=== PATIENT | female | born 1990 | race Hispanic/Latino ===

== ENCOUNTER 2018-04-29 04:22 | Emergency (ER) | payer MEDICAID ==
[2018-04-29 04:47] LABS: BASOPHILS % (AUTO) 0.6 % (0.0-5.0); EOSINOPHILS % (AUTO) 2.6 % (0.0-8.0); HEMATOCRIT 35.9 % (36-48); LYMPHOCYTES % (AUTO) 26.3 % (21.0-51.0); MEAN CORPUSCULAR HEMOGLOBIN 30.9 pg (27.0-33.0); MEAN CORPUSCULAR HGB CONC 34.9 g/dL (32.0-36.0); MEAN CORPUSCULAR VOLUME 88.5 fL (79-99); MONOCYTES % (AUTO) 6.6 % (3.0-13.0); NEUTROPHILS % (AUTO) 63.9 % (40.0-77.0); PLATELET COUNT (AUTO) 272 K/uL (130-400); RED BLOOD CELL COUNT(AUTO) 4.05 MIL/uL (4.00-5.50); RED CELL DISTRIBUTION WIDTH 12.7 % (11.0-15.5)
[2018-04-29 04:58] LABS: CREATININE 0.7 mg/dL (0.5-1.5); POTASSIUM 3.6 mmol/L (3.5-5.1)
[2018-04-29 05:03] LABS: ALBUMIN 2.7 g/dL (3.5-5.0); BILIRUBIN,TOTAL 0.3 mg/dL (0.2-1.0)
[2018-04-29] MEDS ORDERED: HYDROXYZINE HCL 25 MG TABLET ONE (05:06)
[2018-04-29] MEDS ORDERED: LORATADINE 10 MG TABLET ONE (06:38)
[2018-04-29] MEDS ORDERED: FAMOTIDINE/PF 20 MG/2 ML VIAL IV ONE (06:39)
== END 2018-04-29 06:59 | disposition home or self-care (01) ==
LOC: EDH 04:22
DX: O26.893 Other specified pregnancy related conditions, third trimester (principal); L29.9 Pruritus, unspecified; Z87.891 Personal history of nicotine dependence; Z3A.38 38 weeks gestation of pregnancy
CPT/HCPCS: 36415; 80053; 85025; 96374; 99284; J3490

== ENCOUNTER 2018-05-01 12:54 | Inpatient (IN) | payer MEDICAID ==
[~2018-05-01] VITALS: Ht 160 cm; Wt 82.1 kg
[2018-05-01] MEDS ORDERED: AMPICILLIN 2GM+NS 100ML 100 ML IV SCH (13:45)
[2018-05-01] MEDS: DINOPROSTONE 10 MG VAGINAL SUPP VG SCH (13:45)
[2018-05-01] MEDS ORDERED: OXYTOCIN-LR 20 UNITS/1000 ML 1,000 ML IV SCH (13:45)
[2018-05-01 13:47] LABS: HEMATOCRIT 35.8 % (36-48); MEAN CORPUSCULAR HEMOGLOBIN 30.4 pg (27.0-33.0); MEAN CORPUSCULAR HGB CONC 34.3 g/dL (32.0-36.0); MEAN CORPUSCULAR VOLUME 88.6 fL (79-99); PLATELET COUNT (AUTO) 265 K/uL (130-400); RED BLOOD CELL COUNT(AUTO) 4.05 MIL/uL (4.00-5.50); RED CELL DISTRIBUTION WIDTH 12.9 % (11.0-15.5); WHITE BLOOD COUNT (AUTO) 7.5 K/uL (4.8-10.8)
[2018-05-01 13:50] LABS: APPEARANCE,URINE Clear (CLEAR); BILIRUBIN,URINE Negative (NEGATIVE); COLOR,URINE Yellow (YELLOW); GLUCOSE, URINE (UA) Negative (NEGATIVE); KETONES,URINE Negative (NEGATIVE); LEUKOCYTE ESTERASE ,URINE Moderate (NEGATIVE); NITRATE,URINE Negative (NEGATIVE); OCCULT BLOOD,URINE Trace (NEGATIVE); PH,URINE 6.5 (5.0-8.0); PROTEIN,URINE Negative (NEGATIVE)
[2018-05-01 13:53] LABS: BACTERIA,URINE Rare /HPF (None Seen); MUCUS,URINE Rare LPF (None Seen); RBC,URINE 0-1 /HPF (0-1); SQUAMOUS EPITHELIAL CELL,UR Rare /HPF (0-2)
[2018-05-01 13:58] LABS: ALBUMIN 2.9 g/dL (3.5-5.0); BILIRUBIN,DIRECT 0.1 mg/dL (0.0-0.3); BILIRUBIN,TOTAL 0.4 mg/dL (0.2-1.0); TOTAL PROTEIN, SERUM 7.2 g/dL (6.0-8.3)
[2018-05-01] MEDS: LACTATED RINGERS 1000ML 1,000 ML IV PRN ×2 (22:26→23:50)
[2018-05-01] MEDS: AMPICILLIN 1GM+NS 50ML 50 ML IV SCH (23:00)
[2018-05-01] MEDS ORDERED: ACETAMINOPHEN EXTRA STRENGTH 500 MG TABLET ONE (23:29)
[2018-05-02] MEDS ORDERED: OXYTOCIN 10 USP UNITS/ML ONE ×5 (02:35→11:24)
[2018-05-02] MEDS ORDERED: OXYTOCIN 10 USP UNITS/ML 20 UNIT in LACTATED RINGERS 1000ML 1,000 ML IV SCH (03:00)
[2018-05-02] MEDS: AMPICILLIN 1GM+NS 50ML 50 ML IV SCH ×2 (03:06→06:42)
[2018-05-02] MEDS: LACTATED RINGERS 1000ML 1,000 ML IV PRN (06:24)
[2018-05-02 07:30] LABS: HEPATITIS Bs ANTIGEN SCREEN P Negative (Negative)
[2018-05-02] MEDS ORDERED: PROMETHAZINE HCL 25 MG/ML 1ML AMPULE IM ONE (08:15)
[2018-05-02] MEDS ORDERED: MEPERIDINE-PF 50 MG/ML SYG IVP SCH (08:15)
[2018-05-02] MEDS ORDERED: PROMETHAZINE HCL 25 MG/ML 1ML AMPULE IM SCH (08:15)
[2018-05-02] MEDS ORDERED: MEPERIDINE-PF 50 MG/ML SYG ONE (08:15)
[2018-05-02] MEDS ORDERED: LIDOCAINE HCL MPF 1% 5ML VIAL ONE (09:26)
[2018-05-02] MEDS ORDERED: MISOPROSTOL 200 MCG TABLET ONE ×2 (09:37→09:40)
[2018-05-02] MEDS ORDERED: LACTATED RINGERS 1000ML 1,000 ML IV ONE (10:28)
[2018-05-02] MEDS ORDERED: MEASLES/MUMPS/RUBELLA VACCINE, LIVE 0.5 ML/VIAL SQ PRN (11:00)
[2018-05-02] MEDS ORDERED: ACETAMINOPHEN-CODEINE 300/30MG TAB PO PRN (11:00)
[2018-05-02] MEDS ORDERED: DIPH,PERTUSS(ACELL),TET VAC/PF 0.5 ML VIAL IM PRN (11:00)
[2018-05-02] MEDS ORDERED: LANOLIN 30GM OINTMENT TP PRN (11:00)
[2018-05-02] MEDS ORDERED: WITCH HAZEL 1 PAD TP PRN (11:00)
[2018-05-02] MEDS ORDERED: BENZOCAINE/LANOLIN/ALOE VERA 60 ML AEROSOL TP PRN (11:00)
[2018-05-02 11:35] VITALS: BP 118/75
[2018-05-02] MEDS: DINOPROSTONE 10 MG VAGINAL SUPP VG SCH (13:45)
[2018-05-02] MEDS: IBUPROFEN 800 MG TAB PO PRN (14:15)
[2018-05-02] MEDS ORDERED: AMMONIA 1 EA AMP IH ONE (15:19)
[2018-05-02 15:33] VITALS: BP 108/66
[2018-05-02 19:00] VITALS: BP 115/59
[2018-05-02] MEDS: DOCUSATE SODIUM 100 MG CAP PO SCH (21:14)
[2018-05-02] MEDS: ACETAMINOPHEN EXTRA STRENGTH 500 MG TABLET PO SCH (21:16)
[2018-05-03] VITALS (7 sets, daily range): BP systolic 95–123; BP diastolic 53–79
[2018-05-03] MEDS: IBUPROFEN 800 MG TAB PO PRN ×2 (03:32→18:49)
[2018-05-03 05:50] LABS: HEMATOCRIT 27.7 % (36-48); MEAN CORPUSCULAR HEMOGLOBIN 30.3 pg (27.0-33.0); MEAN CORPUSCULAR HGB CONC 33.9 g/dL (32.0-36.0); MEAN CORPUSCULAR VOLUME 89.3 fL (79-99); PLATELET COUNT (AUTO) 185 K/uL (130-400); RED CELL DISTRIBUTION WIDTH 13.1 % (11.0-15.5); WHITE BLOOD COUNT (AUTO) 11.5 K/uL (4.8-10.8)
[2018-05-03] MEDS: DOCUSATE SODIUM 100 MG CAP PO SCH ×2 (08:18→21:01)
[2018-05-03] MEDS: DINOPROSTONE 10 MG VAGINAL SUPP VG SCH (13:45)
[2018-05-03] MEDS: ACETAMINOPHEN EXTRA STRENGTH 500 MG TABLET PO SCH ×2 (17:30→23:30)
[2018-05-03] MEDS ORDERED: DIPHENHYDRAMINE HCL 25 MG CAPSULE PO PRN (19:00)
[2018-05-03] MEDS ORDERED: CETI1TAB PO (23:50)
[2018-05-04 03:09] VITALS: BP 104/64
[2018-05-04] MEDS: IBUPROFEN 800 MG TAB PO PRN ×2 (03:09→12:03)
[2018-05-04] MEDS: ACETAMINOPHEN EXTRA STRENGTH 500 MG TABLET PO SCH (04:20)
[2018-05-04 07:29] VITALS: BP 90/49
[2018-05-04] MEDS: DOCUSATE SODIUM 100 MG CAP PO SCH (09:15)
[2018-05-04 11:24] VITALS: BP 96/60
== END 2018-05-04 13:30 | disposition home or self-care (01) | DRG 542 ==
LOC: LDH 12:54 → WSH 05-02 11:27 → EDSTATUS 05-11 12:54
PROVIDERS: ADMIT Obstetrics & Gynecology; ATTEND Obstetrics & Gynecology
PROC: 10E0XZZ Delivery of Products of Conception, External Approach (ICD-10-PCS; principal; 2018-05-02)
PROC: 0DQR0ZZ Repair Anal Sphincter, Open Approach (ICD-10-PCS; 2018-05-02)
PROC: 0W8NXZZ Division of Female Perineum, External Approach (ICD-10-PCS; 2018-05-02)
PROC: 30233N1 Transfusion of Nonautologous Red Blood Cells into Peripheral Vein, Percutaneous Approach (ICD-10-PCS; 2018-05-02)
PROC: 3E0234Z Introduction of Serum, Toxoid and Vaccine into Muscle, Percutaneous Approach (ICD-10-PCS; 2018-05-02)
PROC: 3E0134Z Introduction of Serum, Toxoid and Vaccine into Subcutaneous Tissue, Percutaneous Approach (ICD-10-PCS; 2018-05-02)
DX: O99.824 Streptococcus B carrier state complicating childbirth (principal); O99.02 Anemia complicating childbirth; O70.20 Third degree perineal laceration during delivery, unspecified; O62.2 Other uterine inertia; Z23 Encounter for immunization; Z37.0 Single live birth; Z3A.38 38 weeks gestation of pregnancy
CPT/HCPCS: 36415; 36430; 80053; 80076; 81001; 85014; 85018; 85025; 85027; 86592; 86850; 86900; 86901; 86922; 87340; 90707; 96374; A4351; A4606; J0290; J2175; J2550; J2590; J3490; J7030; J7120; P9016